=== PATIENT | female | born 1975 ===

== ENCOUNTER 2018-01-15 19:45 | Emergency (ER) | payer SELFPAY ==
[~2018-01-15] VITALS: Ht 165.1 cm; Wt 60.8 kg
[2018-01-15 20:02] VITALS: Ht 165.1 cm; Wt 60.8 kg
[2018-01-15 22:48] VITALS: BP 167/104
== END 2018-01-15 22:48 | disposition left against medical advice (07) ==
LOC: ED 19:45
DX: F41.9 Anxiety disorder, unspecified (principal)